=== PATIENT | female | born 1940 | race Caucasian/White ===

== ENCOUNTER 2025-03-08 11:34 | Emergency (ER) | payer MEDICARE, SELFPAY ==
[2025-03-08] VITALS (8 sets, daily range): BP systolic 149–190; BP diastolic 63–88; PULSE 84–89; RESP 16–20; TEMP -17.7–36.4; O2SAT 95–98; BMI 23.9
--- NOTE | ~2025-03-08 | CT_ITS ---
EXAMINATION: CT CERVICAL SPINE WITHOUT IV CONTRAST HISTORY: fall head strike. TECHNIQUE: Helical CT of the cervical spine was performed per standard departmental protocol. Coronal and sagittal reformatted images were also evaluated. One or more of the following techniques was used for dose reduction: Automated exposure control, adjustment of the mA and/or kV according to patient size, use of iterative reconstruction technique. DLP: 220 mGy-cm COMPARISON: There are no prior studies available for comparison. FINDINGS: CERVICAL SPINE: The vertebral bodies maintain normal height and alignment without evidence of fracture or subluxation. There is moderate degenerative disc disease at the C5-6 and C6-7 levels, with disc space narrowing and osteophyte formation. Milder changes are noted at the remaining levels. Evaluation for disc pathology is limited by lack of intrathecal contrast material, however. BRAIN: The visualized portion of the brain is unremarkable. SINUSES: There is fluid in the sphenoid sinuses. The visualized mastoid air cells and middle ear cavities are normally pneumatized. LUNG APICES: The visualized lung apices are clear. SOFT TISSUES: The visualized paraspinal soft tissues are unremarkable. CT/CT cervical spine wo IV con IMPRESSION: No evidence of fracture or malalignment of the cervical spine. Electronically signed by: Jed Barrett MD 03/08/2025 01:02 PM EDT
--- NOTE | ~2025-03-08 | CT_ITS ---
EXAMINATION: CT HEAD WITHOUT IV CONTRAST HISTORY: fall head strke. TECHNIQUE: Unenhanced helical CT of the head was performed per standard departmental protocol. Coronal and sagittal reformats of the head were also evaluated. One or more of the following techniques was used for dose reduction: Automated exposure control, adjustment of the mA and/or kV according to patient size, use of iterative reconstruction technique. DLP: 541 mGy-cm COMPARISON: There are no prior studies available for comparison. FINDINGS: BRAIN: There is linear high signal seen adjacent to the right temporoparietal region suggestive of a small area of acute subarachnoid hemorrhage for example axial image 43-53 series 3. There is also linear high signal adjacent to the left temporal lobe for example axial image 36-38 series 3 suggestive of small subarachnoid hemorrhage as well. There is attenuation adjacent to the superior left temporal lobe just above the mastoid air cells questionable for subarachnoid hemorrhage versus small contusion for example axial image 32 series 3, sagittal reconstructed image 19 series 9 and coronal reconstructed image 97 series 7. The ventricles and extra-axial CSF spaces are prominent suggestive of mild generalized atrophy. There is mild nonspecific periventricular white matter disease. No mass, mass effect or infarct. SINUSES: Fluid and small amount of fluid and dependent air in the right maxillary sinus. Small amount of fluid in the left maxillary and sphenoid sinuses. Paranasal sinuses are otherwise clear. Mastoid air cells and middle ears are clear. ORBITS: The visualized orbits are unremarkable. BONES/SOFT TISSUES: There is a large soft tissue hematoma overlying the right frontal and parietal bones. No skull fracture is seen. Small amount of air dependently in the right maxillary sinus raises question of possible facial bone fracture. No fracture is redictated on head CT CT/CT head/brain wo IV con IMPRESSION: Small amount of subarachnoid hemorrhage adjacent to the right temporal parietal lobes and left temporal lobe. Question subarachnoid hemorrhage versus a small contusion of the left temporal lobe just superior to the left mastoid air cells. Mild generalized atrophy. Large scalp hematoma overlying the right frontal and parietal bones. No skull fracture. Air-fluid level and dependent air in the right maxillary sinus. There are also small air-fluid levels in the left maxillary and sphenoid sinuses. This raises question of occult facial bone fracture. Findings were communicated to Amina Pavon I telephoned 03/08/2025 at 1:05 PM Electronically signed by: Liza Vargas MD 03/08/2025 01:13 PM EDT
--- NOTE | 2025-03-08 12:12 | ED.FALL ---
HPI - Fall General Chief Complaint: Fall Stated Complaint: FALL,HIT HEAD,-THINNER,NO MEMORY OF FALL PER EMS Time Seen by Provider: 03/08/25 11:38 Source: patient and EMS Mode of arrival: EMS Limitations: no limitations History of Present Illness ED Provider: AMINA PAVON PA-C HPI Narrative: 84 year old female with pmhx significant for HTN presents to the ED today via EMS from home for evaluation s/p fall occurring prior to arrival. Patient states that she was carrying heavy dishes in her basement when she felt them become too heavy causing her to topple over onto her right-hand side with head strke on cement floor. Reports losing consciousness. Not on anticoagulation. The next thing she remembers is the ambulance arriving to bring her to the ED. She is unclear if the company that was up stairs heard her fall or how long she was on the ground for. she denies any preceding symptoms including dizziness, chest pain, palpitations. Per EMS, her friends noted her to be oriented to person, unable to recall the fall. prompting them to call EMS. Her only complaint at present is right head/jaw pain. Related Data Allergies Allergy/AdvReac Type Severity Reaction Status Date / Time codeine Allergy Unknown Verified 03/08/25 12:01 Sulfa (Sulfonamide Allergy Hives Verified 03/08/25 12:01 Antibiotics) Review of Systems Review of Systems: Yes all other systems are reviewed and are negative [facility] Past Medical History Attestation statement: The following information was validated with the patient. Source: old records reviewed and nursing notes reviewed Social History Social History Smoked in Last 30 Days: No Use of substances other than those prescribed or required for medical reasons: No Advance Directives: Yes Advance Directives Information Provided: No Advance Directives on File: No Do you have a plan to hurt others: No Plan Physical Exam Vital Signs: Vital Signs: Last Vital Signs Temp 97.6 F 03/08/25 11:57 Pulse 84 03/08/25 13:34 Resp 18 03/08/25 13:34 BP 165/70 H 03/08/25 13:34 Pulse Ox 96 03/08/25 13:34 O2 Del Method Room Air 03/08/25 13:34 BMI result Body Mass Index 23.9 hypertenive, vitals are otherwise wnl General: Well appearing, in no acute distress. Skin: Warm, dry, intact. No rashes or lesions. Head: Hematoma noted to right parietal region, no palpable skull fracture. No raccoon eyes or jamil sign. EENT: Hearing is intact b/l. Conjunctiva clear. Sclera is anicteric. PERRLA. EOM intact. Moist mucous membranes.? Neck: In cervical collar Cardiac: Chest wall symmetric. RRR Lungs: Normal respiratory effort without accessory muscle use. CTA bilaterally Abdomen: Soft, non-tender, non-distended. No rebound tenderness or guarding. Positive BS x4. Back: No midline spinous or paraspinal tenderness. No step off deformity. Ext: Upper and lower extremities atraumatic, without tenderness, deformity, swelling or erythema. Full ROM throughout. Neuro: AOx3. Normal speech. no facial droop or slurred speech. no focal neuro deficits. Course Course Course Narrative: 1315 -- received critical rad read: CT head/brain wo IV con IMPRESSION: Small amount of subarachnoid hemorrhage adjacent to the right temporal parietal lobes and left temporal lobe. Question subarachnoid hemorrhage versus a small contusion of the left temporal lobe just superior to the left mastoid air cells. Mild generalized atrophy. Large scalp hematoma overlying the right frontal and parietal bones. No skull fracture. Air-fluid level and dependent air in the right maxillary sinus. There are also small air-fluid levels in the left maxillary and sphenoid sinuses. This raises question of occult facial bone fracture. Findings were communicated to Amina Pavon I telephoned 03/08/2025 at 1:05 PM > results discussed with patient and her son at bedside. call out to [facility] trauma 1330 -- patients BP still elevated to 160s/70s - discussed with my attending dr. wyatt, recommending nicardipine for BP control which has been ordered 1400 -- unable to reach trauma at [facility] - spoke with ED attending dr. marrero who has accepted patient transfer. consents signed - patient AOX3. BP currently 159/63, nicardipine running. she is stable at this time. will be transported ALS. Medications Administered Discontinued Medications Generic Name Dose Route Start Last Admin Trade Name Freq PRN Reason Stop Dose Admin Acetaminophen 1,000 mg in 100 mls @ 400 mls/hr 03/08/25 12:12 03/08/25 13:25 Ofirmev IV 03/08/25 12:26 400 mls/hr ONCE ONE Administration Ondansetron HCl 4 mg 03/08/25 12:04 03/08/25 12:11 Ondansetron Hcl 4 Mg/2 Ml Vial IVPUSH 03/08/25 12:05 Not Given ONCE ONE Ondansetron HCl 4 mg 03/08/25 12:10 03/08/25 12:11 Ondansetron Odt 4 Mg Tab.Rapdis TRANSLINGU 03/08/25 12:11 4 mg ONCE ONE Administration Medical Decision Making Medical Decision Making MDM Narrative: 84 year old female with pmhx significant for HTN presents to the ED today via EMS from home for evaluation s/p fall occurring prior to arrival. Hypertensive, vitals otherwise WNL. She is generally well-appearing and in no acute distress. Presents in cervical collar. Her exam is nonfocal. She has a hematoma to her right parietal region, no palpable skull fracture. PERRLA. Differential diagnosis includes concussion, scalp hematoma, skull fracture, intracranial bleed/hemorrhage, cervical spine fracture/subluxation, cervical strain/sprain Plan for labs, imaging, pain control, and re-evaluation Differential Diagnosis Differential Diagnoses: The differential diagnosis associated with the presentation includes as above. Admission/Observation Consideration of admission/observation: Escalation of care including admission/observation considered patient being transferred to [facility] ED/trauma for traumatic subarachnoid hemorrhage Consult Healthcare Provider Management of the patient was discussed with: [employer] ed dr. marrero at [facility] Lab Data MDM Lab Attestation statement: I reviewed the patient's lab results. as above. 03/08/25 13:21 03/08/25 13:21 Labs: Lab Results 03/08/25 Range/Units 13:21 WBC 13.7 H (4.8-10.8) X10*3/uL RBC 4.10 L (4.20-5.50) X10*6/uL Hgb 12.7 (12.0-16.0) g/dl Hct 38.1 (37.0-47.0) % MCV 92.9 (80.0-98.0) fL MCH 31.0 (27.0-33.0) pg MCHC 33.3 (31.0-35.0) g/dl RDW 12.4 (11.0-16.0) % Plt Count 224 (160-400) X10*3/uL MPV 11.2 (9.4-12.3) fL Immature Gran % (Auto) 1.0 H (0.0-0.4) % Neut % (Auto) 86.1 H (45-73) % Lymph % (Auto) 7.5 L (20-40) % Stanly % (Auto) 4.7 (2-11) % Eos % (Auto) 0.4 (0-4) % Baso % (Auto) 0.3 (0-2) % Lymph # (Auto) 1.0 L (1.2-4.9) X10*3/uL Stanly # (Auto) 0.6 (0.1-1.2) X10*3/uL Eos # (Auto) 0.1 (0.0-0.4) X10*3/uL Baso # (Auto) 0.0 (0.0-0.2) X10*3/uL Abs Immat Gran (auto) 0.14 H (0.00-0.03) X10*3/uL Absolute Neuts (auto) 11.7 H (2.0-8.3) x10*3/uL Absolute Nucleated RBC 0.000 (0.0-0.012) X10*3/uL Nucleated RBC % (auto) 0.0 (0.0-0.2) /100WBC PT 11.7 (10.9-12.4) SEC INR 1.0 (0.9-1.1) Sodium 138 (135-145) mmol/L Potassium 4.3 (3.3-5.1) mmol/L Chloride 104 (96-108) mmol/L Carbon Dioxide 26 (22-29) mmol/L Anion Gap 12 (12-20) BUN 26 H (9-16) mg/dL Creatinine 0.78 (0.5-1.4) mg/dL Estim Creat Clear Calc 42.4 Estimated GFR > 60 Random Glucose 103 (60-115) mg/dL Calcium 10.2 (8.4-10.2) mg/dL Magnesium 1.9 (1.6-2.6) mg/dL Total Bilirubin 0.3 (0.0-1.0) mg/dL AST 31 (5-31) U/L ALT 22 (0-31) U/L Alkaline Phosphatase 88 (39-117) U/L Total Protein 7.6 (6.5-8.0) g/dL Albumin 4.7 (3.5-5.0) g/dL Lipase 24 (8-78) U/L Independent Interpretation I performed an independent interpretation of an: CT Scan Interpretation: ct head w/ right subarachnoid hemorrhage ct cervical spine without fracture Radiology Impression Discussion of test interpretation with radiology: I have reviewed the radiologist's reading. Radiologist Impression: Procedure(s): CT head/brain wo IV con Accession Number(s): [id number] cc: Lo Wilhelm MD; Amina Pavon~ Report Number: [id number]: Total DLP = 641.14 mGy-cm Reason for Exam: fall head strke EXAMINATION: CT HEAD WITHOUT IV CONTRAST HISTORY: fall head strke. TECHNIQUE: Unenhanced helical CT of the head was performed per standard departmental protocol. Coronal and sagittal reformats of the head were also evaluated. One or more of the following techniques was used for dose reduction: Automated exposure control, adjustment of the mA and/or kV according to patient size, use of iterative reconstruction technique. DLP: 541 mGy-cm COMPARISON: There are no prior studies available for comparison. FINDINGS: BRAIN: There is linear high signal seen adjacent to the right temporoparietal region suggestive of a small area of acute subarachnoid hemorrhage for example axial image 43-53 series 3. There is also linear high signal adjacent to the left temporal lobe for example axial image 36-38 series 3 suggestive of small subarachnoid hemorrhage as well. There is attenuation adjacent to the superior left temporal lobe just above the mastoid air cells questionable for subarachnoid hemorrhage versus small contusion for example axial image 32 series 3, sagittal reconstructed image 19 series 9 and coronal reconstructed image 97 series 7. The ventricles and extra-axial CSF spaces are prominent suggestive of mild generalized atrophy. There is mild nonspecific periventricular white matter disease. No mass, mass effect or infarct. SINUSES: Fluid and small amount of fluid and dependent air in the right maxillary sinus. Small amount of fluid in the left maxillary and sphenoid sinuses. Paranasal sinuses are otherwise clear. Mastoid air cells and middle ears are clear. ORBITS: The visualized orbits are unremarkable. BONES/SOFT TISSUES: There is a large soft tissue hematoma overlying the right frontal and parietal bones. No skull fracture is seen. Small amount of air dependently in the right maxillary sinus raises question of possible facial bone fracture. No fracture is redictated on head CT CT/CT head/brain wo IV con IMPRESSION: Small amount of subarachnoid hemorrhage adjacent to the right temporal parietal lobes and left temporal lobe. Question subarachnoid hemorrhage versus a small contusion of the left temporal lobe just superior to the left mastoid air cells. Mild generalized atrophy. Large scalp hematoma overlying the right frontal and parietal bones. No skull fracture. Air-fluid level and dependent air in the right maxillary sinus. There are also small air-fluid levels in the left maxillary and sphenoid sinuses. This raises question of occult facial bone fracture. Findings were communicated to Amina Pavon I telephoned 03/08/2025 at 1:05 PM Electronically signed by: Liza Vargas MD 03/08/2025 01:13 PM EDT RP Procedure(s): CT cervical spine wo IV con Accession Number(s): [id number] cc: Lo Wilhelm MD; Amina Pavon PA~ Report Number: [id number]: Total DLP = 219.97 mGy-cm Reason for Exam: fall head strke EXAMINATION: CT CERVICAL SPINE WITHOUT IV CONTRAST HISTORY: fall head strike. TECHNIQUE: Helical CT of the cervical spine was performed per standard departmental protocol. Coronal and sagittal reformatted images were also evaluated. One or more of the following techniques was used for dose reduction: Automated exposure control, adjustment of the mA and/or kV according to patient size, use of iterative reconstruction technique. DLP: 220 mGy-cm COMPARISON: There are no prior studies available for comparison. FINDINGS: CERVICAL SPINE: The vertebral bodies maintain normal height and alignment without evidence of fracture or subluxation. There is moderate degenerative disc disease at the C5-6 and C6-7 levels, with disc space narrowing and osteophyte formation. Milder changes are noted at the remaining levels. Evaluation for disc pathology is limited by lack of intrathecal contrast material, however. BRAIN: The visualized portion of the brain is unremarkable. SINUSES: There is fluid in the sphenoid sinuses. The visualized mastoid air cells and middle ear cavities are normally pneumatized. LUNG APICES: The visualized lung apices are clear. SOFT TISSUES: The visualized paraspinal soft tissues are unremarkable. CT/CT cervical spine wo IV con IMPRESSION: No evidence of fracture or malalignment of the cervical spine. Electronically signed by: Jed Barrett MD 03/08/2025 01:02 PM EDT RP Independent Historian Clinical information obtained from an independent historian. History obtained from or confirmed by: EMS and Other (son) Prescription Management I considered prescription management with: Pain Medication Chronic Conditions Patient?s care impacted by: Hypertension Social Determinants Patient?s care significantly limited by Social Determinants of Health including: Other Social Determinant of Health Critical Care Time Critical Care Time Critical Care Time: Yes Total Critical Care Time: 50 Attestation: Critical care time in the amount of 50 minutes has been provided to the patient in terms of direct patient care, frequent reevaluation, review and interpretation of medical data and results, and management of potentially life-threatening conditions. This is all outside of any medical procedures. Discharge Plan Discharge Clinical Impression: Subarachnoid hemorrhage, Fall, Hematoma of scalp Patient Disposition: [facility] Transfer Details: [facility] ED/TRAUMA - DR. MARRERO Print Language: Palauan
[2025-03-08 13:25] LABS: MANUAL DIFF FLAG NO
[2025-03-08 13:32] LABS: INTERNATIONAL NORM RATIO 1.0 (0.9-1.1); Prothrombin Time 11.7 SEC (10.9-12.4)
[2025-03-08 13:35] LABS: Hematocrit 38.1 % (37.0-47.0); Hemoglobin 12.7 g/dl (12.0-16.0); Imm Gran Abs Auto 0.14 X10*3/uL (0.00-0.03); Imm Gran Pct Auto 1.0 % (0.0-0.4); Lymphocytes Absolute Auto 1.0 X10*3/uL (1.2-4.9); Mean Corpuscular HGB Conc 33.3 g/dl (31.0-35.0); Mean Corpuscular Hemoglobin 31.0 pg (27.0-33.0); Mean Corpuscular Volume 92.9 fL (80.0-98.0); NRBC Abs Auto 0.000 X10*3/uL (0.0-0.012); NRBC Pct Auto 0.0 /100WBC (0.0-0.2); Platelet Count 224 X10*3/uL (160-400); Red Blood Count 4.10 X10*6/uL (4.20-5.50); White Blood Count 13.7 X10*3/uL (4.8-10.8)
--- NOTE | 2025-03-08 13:41 | PC.NURSE ---
pt is alert and oriented but some details of her fall are fussy but answering questions appropriately at this time , skin pwd, respirations even and unlabored, all nuero's intact at this time, pupils reactive to light, pt does have a large hematoma to the right side of her head, is reporting a headache 9/10 and intermittent jaw pain, nausea subsided since the zofran, pt's bp on the higher sided 165/70, ns on the monitor
[2025-03-08 13:47] LABS: Alanine Aminotransferase 22 U/L (0-31); Albumin Level 4.7 g/dL (3.5-5.0); Alkaline Phosphatase 88 U/L (39-117); Anion Gap 12 (12-20); Aspartate Amino Transferase 31 U/L (5-31); Blood Urea Nitrogen 26 mg/dL (9-16); Calcium 10.2 mg/dL (8.4-10.2); Carbon Dioxide 26 mmol/L (22-29); Chloride 104 mmol/L (96-108); Creatinine Clr Calc Pharmacy 42.4; Estimated Glomerular Filt Rate > 60; Lipase 24 U/L (8-78); Magnesium 1.9 mg/dL (1.6-2.6); Potassium 4.3 mmol/L (3.3-5.1); Sodium 138 mmol/L (135-145); Total Protein 7.6 g/dL (6.5-8.0)
--- NOTE | 2025-03-08 14:47 | PC.NURSE ---
report given to Elle GRADY at [facility]
--- OUTSIDE RECORDS SUMMARY | 2025-03-08 15:11 | XMS_ITS | Patient Health Record ---
Author Organization [facility] Address [address] [place] [address] Care Team Providers Care Vendor Representatives Name Role Phone Jed Chowdhury [phone] Reason For Referral No Information Plan Of Treatment No Information
== END 2025-03-08 14:52 | disposition short-term general hospital (02) ==
PROVIDERS: Physician Assistant Medical; Emergency Provider Emergency Medicine; PCP Internal Medicine
DX: I60.8 Other nontraumatic subarachnoid hemorrhage (principal); S00.03XA Contusion of scalp, initial encounter; I10 Essential (primary) hypertension; W01.198A Fall on same level from slipping, tripping and stumbling with subsequent striking against other object, initial encounter; Y93.89 Activity, other specified; Y92.098 Other place in other non-institutional residence as the place of occurrence of the external cause; Y99.8 Other external cause status; Z79.899 Other long term (current) drug therapy
CPT/HCPCS: 36415; 70450; 72125; 80053; 83690; 83735; 85025; 85610; 96365; 96367; 99285; 99291; J0131; J2404

== ENCOUNTER → 2025-03-08 12:05 | Outpatient (BNV) | payer MEDICARE, SELFPAY | PROVIDERS: Emergency Provider Emergency Medicine; PCP Internal Medicine; Visit Provider Radiology Diagnostic Radiology | DX: S09.90XA Unspecified injury of head, initial encounter (principal); W19.XXXA Unspecified fall, initial encounter | CPT/HCPCS: 70450; 72125 ==